=== PATIENT | female | born 1945 | race Caucasian/White ===

== ENCOUNTER 2019-05-07 | Emergency (ER) | payer MEDICARE, OTHER ==
[2019-05-07] MEDS ORDERED: LIPITOR40 M1 PO (16:13)
[2019-05-07] MEDS ORDERED: VERAPAMIL120 M1 PO (16:13)
[2019-05-07] MEDS ORDERED: K-DUR/KLOR-CON20 MEQ PO (16:14)
[2019-05-07] MEDS ORDERED: AMITRIPTYLIN25 MG PO (16:14)
[2019-05-07] MEDS ORDERED: OMEPRAZOLE DR20 MG PO (16:15)
== END 2019-05-07 17:26 | disposition home or self-care (01) ==
DX: R07.81 Pleurodynia (principal); I10 Essential (primary) hypertension; R22.2 Localized swelling, mass and lump, trunk; W01.0XXA Fall on same level from slipping, tripping and stumbling without subsequent striking against object, initial encounter

== ENCOUNTER 2021-01-01 10:02 | Emergency (ER) | payer MEDICARE, OTHER ==
[~2021-01-01] VITALS: Ht 165.1 cm; Wt 70.0 kg
[~2021-01-01 10:02] MED LIST: AMITRIPTYLIN25 MG PO; K-DUR/KLOR-CON20 MEQ PO; LIPITOR40 M1 PO; OMEPRAZOLE DR20 MG PO; VERAPAMIL120 M1 PO
[2021-01-01] MEDS ORDERED: LOSARTAN POTASS50 MG PO (10:18)
[2021-01-01] MEDS ORDERED: ALENDRONATE10 MG PO (10:19)
[2021-01-01] MEDS ORDERED: BETIMOL0.51 OU (10:21)
[2021-01-01 12:02] LABS: HEMATOCRIT 36.6 % (37.0-47.0); HEMOGLOBIN 11.8 g/dl (12.0-16.0); IMMATURE GRANULOCYTES 0.4 % (0.0-5.0); MEAN CELL VOLUME 89.1 fL CALC (80.0-100.0); MEAN CORPUSCULAR HGB 28.7 pG CALC (26.0-32.0); MEAN CORPUSCULAR HGB CONC 32.2 g/dL CAL (32.0-36.0); NEUT# 3.59 thou/uL (2.00-7.15); RED BLOOD COUNT 4.11 mill/uL (4.20-5.60); RED CELL DISTRI WIDTH 13.8 % (11.5-15.5)
[2021-01-01 12:17] LABS: URINE BILIRUBIN - DIPSTICK NEGATIVE (NEGATIVE); URINE BLOOD DIPSTICK TRACE-INTACT (NEGATIVE); URINE COLOR YELLOW; URINE GLUCOSE - DIPSTICK NEGATIVE (NEGATIVE); URINE KETONE NEGATIVE (NEGATIVE); URINE LEUK ESTERASE NEGATIVE (NEGATIVE); URINE PROTEIN - DIPSTICK NEGATIVE (NEG-TRACE); URINE UROBILINOGEN - DIPSTICK 0.2 E.U./dL (0.2)
[2021-01-01 12:30] LABS: URINE NITRITE - DIPSTICK NEGATIVE (Negative)
[2021-01-01 12:32] LABS: ALBUMIN 4.2 g/dL (3.2-5.0); ALKALINE PHOSPHATASE 75 u/l (38-126); ANION GAP 9 (6-22 (CALC)); BILIRUBIN, TOTAL 0.7 mg/dL (0.0-1.4); BUN 13 mg/dL (8-23); BUN/CREATININE RATIO 17 (12-20 (CALC)); CARBON DIOXIDE 30 mmol/l (22-30); CHLORIDE 101 mmol/l (95-108); CREATININE 0.7 mg/dL (0.5-1.0); GFR > 60 ML/MIN (>=60 (CALC)); GFR FOR AFR.AMER. > 60 ML/MIN (>=60 (CALC)); MAGNESIUM 1.7 mg/dL (1.6-2.3); POTASSIUM 3.7 mmol/l (3.5-5.1); SGOT/AST 31 u/l (9-36); SODIUM 136 mmol/l (137-146); TOTAL PROTEIN 7.6 g/dL (6.3-8.2)
[2021-01-01 12:42] LABS: MYOGLOBIN 33 ng/mL (0 - 62)
[2021-01-01 13:23] VITALS: BP 169/83
[2021-01-01] MEDS ORDERED: CLONIDINE0.1 MG PO (13:28)
== END 2021-01-01 13:33 | disposition home or self-care (01) ==
LOC: ED 10:02
PROVIDERS: Emergency Medicine
DX: I10 Essential (primary) hypertension (principal); E78.00 Pure hypercholesterolemia, unspecified

== ENCOUNTER 2022-07-11 13:19 | Emergency (ER) | payer MEDICARE, OTHER ==
[2022-07-11] VITALS (7 sets, daily range): BP systolic 87–182; BP diastolic 56–100
[~2022-07-11] VITALS: Ht 165.1 cm; Wt 72.7 kg
[~2022-07-11 13:19] MED LIST changes: +ALENDRONATE10 MG PO; +BETIMOL0.51 OU; +CLONIDINE0.1 MG PO; +LOSARTAN POTASS50 MG PO
== END 2022-07-11 14:36 | disposition home or self-care (01) ==
LOC: ED 13:19
DX: L97.929 Non-pressure chronic ulcer of unspecified part of left lower leg with unspecified severity (principal); I10 Essential (primary) hypertension; E78.00 Pure hypercholesterolemia, unspecified

== ENCOUNTER 2024-04-24 12:12 | Emergency (ER) | payer MEDICARE, OTHER ==
[2024-04-24] VITALS (15 sets, daily range): BP systolic 133–175; BP diastolic 64–113
[~2024-04-24] VITALS: Ht 165.1 cm; Wt 74.0 kg
[2024-04-24] MEDS ORDERED: SPIRONOLACTONE25 MG PO (12:31)
[2024-04-24] MEDS ORDERED: OMEPRAZOLE DR40 MG (12:36)
[2024-04-24 13:19] LABS: BASO% 0.1 % (0-3); HEMATOCRIT 39.2 % (37.0-47.0); HEMOGLOBIN 13.2 g/dl (12.0-16.0); IMMATURE GRANULOCYTES 0.3 % (0.0-5.0); LYMPH% 8.7 % (15-41); MEAN CORPUSCULAR HGB 31.9 pG CALC (26.0-32.0); MEAN CORPUSCULAR HGB CONC 33.7 g/dL CAL (32.0-36.0); MONO% 3.1 % (2-13); NEUT# 13.71 thou/uL (2.00-7.15); NEUT% 87.8 % (42-76); RED BLOOD COUNT 4.14 mill/uL (4.20-5.60); RED CELL DISTRI WIDTH 12.6 % (11.5-15.5)
[2024-04-24 13:22] LABS: MEAN CELL VOLUME 94.7 fL CALC (80.0-100.0)
[2024-04-24 13:30] LABS: ALKALINE PHOSPHATASE 99 u/l (38-126); ANION GAP 14 (6-22 (CALC)); BILIRUBIN, TOTAL 0.7 mg/dL (0.02-1.3); BUN 16 mg/dL (8-23); BUN/CREATININE RATIO 22 (12-20 (CALC)); CARBON DIOXIDE 28 mmol/l (22-30); CHLORIDE 96 mmol/l (95-108); CREATININE 0.7 mg/dL (0.5-1.0); ESTIMATED GFR 88 ML/MIN (>=90 (CALC)); POTASSIUM 3.9 mmol/l (3.5-5.1); SGOT/AST 36 u/l (9-36); SODIUM 133 mmol/l (137-146); TOTAL PROTEIN 7.9 g/dL (6.3-8.2)
== END 2024-04-24 16:14 | disposition home or self-care (01) ==
LOC: ED 12:12
PROVIDERS: Emergency Medicine
DX: I10 Essential (primary) hypertension (principal); E78.00 Pure hypercholesterolemia, unspecified